=== PATIENT | male | born 1995 | race Caucasian/White ===

== ENCOUNTER 2025-08-12 16:12 | Emergency (ER) | payer BC, SELFPAY ==
[2025-08-12 16:18] VITALS: BP 133/85
[2025-08-12 16:35] LABS: Hematocrit 44.5 % (39.0-52.0); Hemoglobin 16.2 g/dL (13.0-18.0); Mean Corp Hgb Conc. 36.4 g/dL (33.0-37.0); Mean Corpuscular Volume 83.8 fL (80.0-94.0); Nucleated Red Blood Cells % 0 % (-); Platelet Count 195 10^3/uL (130-400); Red Cell Dist. Width 11.8 % (11.5-14.5)
[2025-08-12 16:49] LABS: ALT (SGPT) 26 U/L (0-50); AST (SGOT) 22 U/L (17-59); Albumin 4.8 g/dl (3.5-5.0); Alkaline Phosphatase 45 U/L (38-126); Blood Urea Nitrogen 13 mg/dl (9-20); Calcium 9.4 mg/dl (8.4-10.2); Carbon Dioxide 31 mmol/L (22-30); Chloride 105 mmol/L (98-107); Glucose 101 mg/dl (70-99); Potassium 4.4 mmol/L (3.5-5.1); Sodium 141 mmol/L (135-145); Total Protein 7.8 g/dl (6.3-8.2); eGFR > 60.00
[2025-08-12 17:00] LABS: Troponin I < 0.012 ng/ml
[2025-08-12 17:07] VITALS: BP 136/71
[2025-08-12 17:15] VITALS: BP 120/66
[2025-08-12 17:25] VITALS: BMI 27.9
[2025-08-12] MEDS: MOTRIN PO (17:32)
--- NOTE | 2025-08-12 17:32 | ED.GENMED ---
History of Present Illness
General
Chief Complaint: Chest Pain
Source: patient
Exam Limitations: none
Time Seen by Provider: 08/12/25 17:02
History of Present Illness
History of Present Illness:
30-year-old male chest pain for 2 weeks intermittent sharp worse with deep breath pressure in his left chest, no nausea no vomiting, recently flew from [place] where he lives pain predated the trip, his father had an SD in his early 30s mother
recently had an SD, patient has no diabetes no high cholesterol no hypertension does not smoke very rarely socially drinks, he has had no calf pain no history of PE, has not seen a physician recently to discuss his cardiovascular risk factors/family
history, has had no prior abdominal surgeries
Past History
Past History
ED Past Medical History: None
ED Past Surgical History: Orthopedic
Social History
Tobacco: Non-smoker
Alcohol: Occasional
Drug: None
Personal:
Living: with family
Employment: Employed
Family History
Family History: Early CAD
Review of Systems
Review of Systems
All Other Systems: Not applicable
Constitutional: Denies fever or fatigue
EENT: Reports no symptoms
Respiratory: Reports no symptoms; Denies cough or trouble breathing
Cardiac: Reports chest pain; Denies diaphoresis, palpitations or syncope
ABD/GI: Reports no symptoms
Skin: Reports no symptoms
Neurological: Reports no symptoms
Endocrine: Reports no symptoms
Phy Exam
Physical Exam
Physical Exam:
Physical Exam
General: no apparent distress, not acutely ill
Neck: no jaundice
Heart: s1/s2 regular rate and rhythm, no murmur. equal radial pulses.
Lungs: no acute respiratory distress. clear bilaterally
Abdomen:non tender
Neuro: alert and oriented. no focal neurological deficits
Skin: no rash
Psychiatric: well kept. interactive and cooperative
Extremities: no edema. no calf tenderness.
Scores
Heart Score for Chest Pain Patients
STEMI patient?: No
History: Slightly or Non-Suspicious
ECG: Normal
Age: </= 45 years
Risk Factors: 1 or 2 Risk Factors
Troponin: </= Normal Limit
Heart Score for Chest Pain Patients: 1
Heart Score Risk: 2.5% MACE over next 6 weeks
Course
Orders/Labs/Results
Orders:
Orders
08/12/25 16:14
EKG [Electrocardiogram (*1)] Urgent
Reason for Study: Chest Pain
EKG- Treatment ONCE
08/12/25 16:25
Complete Blood Count/With Diff Urgent
Comprehensive Metabolic Panel Urgent
Troponin I Urgent
08/12/25 17:16
Ibuprofen [Motrin] 600 mg PO NOW STA
CR Chest - 2 Views Urgent
Comment:
Reason For Exam: cp
08/12/25 17:22
D-Dimer Urgent
Troponin I Urgent
Abnormal Lab Results
08/12/25
16:25
Carbon Dioxide 31 H mmol/L
(22-30)
Glucose 101 H mg/dl
(70-99)
08/12/25 16:25
08/12/25 16:25
Vital Signs
Initial and Last Documented VS:
Initial Vital Signs
Temp Pulse Resp BP Pulse Ox
97.9 F 85 18 133/85 97
08/12/25 16:18 08/12/25 16:18 08/12/25 16:18 08/12/25 16:18 08/12/25 16:18
Last Documented Vital Signs
Temp Pulse Resp BP Pulse Ox
97.9 F 89 16 136/71 96
08/12/25 16:18 08/12/25 17:07 08/12/25 17:07 08/12/25 17:07 08/12/25 17:33
MDM/Problems Addressed
Differential Diagnosis Includes:
Muscle strain costochondritis pericarditis less likely ACS or SD, PE possibly pneumothorax possibly doubt dissection
MDM/Problems Addressed:
Chest pain
*Radiology
Radiology exam reviewed: preliminary read by ED provider
*Pulse Oximetry
SaO2: 96
Oxygen Mode of Delivery: Room air
Patient hypoxic: no
*EKG
Interpreted by ED Provider?: Yes
Interpretation: normal
Comparison EKG: no comparison EKG present
Heart Rate: 78
Rate: normal
Rhythm: sinus
Ischemia: no ischemia
*Gang Sawyer Interpretation
Rate: normal
Interpretation: normal
Heart Rate: 78
Rhythm: sinus
*Critical Care Note
Total Time (30-74mins, 75-104mins- exclusive of procedures): Not Applicable
Update Note
Update Note:
6:15 PM serial troponins undetectable, D-dimer noted chest x-ray noted no obvious pneumothorax
Encouraged patient to follow-up with his PCP in [place]
ED Attending Note
-
Portions of this chart may have been created with voice recognition software.� Occasional wrong word or��sound alike� substitutions may have occurred due to the inherent limitations of voice recognition software.
Discharge Plan
Departure
Patient Disposition: Home (Routine Discharge)
Date of Disposition: 08/12/25
Time of Disposition: 18:15
Patient with high blood pressure during this ER visit?: No
Condition: Good
Discharge Problem:
Chest pain
Instructions: Chest Pain PCP Follow Up
Prescriptions:
New
ibuprofen 600 mg tablet
600 mg PO Q6H PRN (Reason: Pain) Qty: 20 0RF
Referrals:
UNKNOWN - PT DOES,NOT KNOW [Family Provider]
Activity Restrictions/Additional Instructions:
Follow-up with primary care provider when you return to [place]
Interventions
Interventions:
*Risk Screen - Suicide Last Done: 08/12/25 16:18
*General Assessment Last Done: 08/12/25 16:18
*Neglect/Abuse Screening Last Done: 08/12/25 16:18
*ED- Fall Risk Assessment Last Done: 08/12/25 17:26
*ED COVID-19 Vaccine History Last Done: 08/12/25 17:26
ED- Cardiac Assessment Last Done: 08/12/25 17:26
Discharge Date and Time
Print Language: GUATEMALAN
[2025-08-12 17:48] LABS: D-Dimer 0.36 ug/mlFEU (0.00-0.50)
[2025-08-12 18:02] LABS: Troponin I < 0.012 ng/ml
[2025-08-12] MEDS: MOTRIN 600 MG PO (18:32)
== END 2025-08-12 18:31 | disposition home or self-care (01) ==
LOC: EMR 16:12
PROVIDERS: EMERGENCY PHYSICIAN Emergency Medicine
DX: R07.9 Chest pain, unspecified (principal); Z82.49 Family history of ischemic heart disease and other diseases of the circulatory system
CPT/HCPCS: 99285; 71046; 80053; 84484; 85025; 85379; 93005